=== PATIENT | female | born 1940 | race American Indian/Alaskan Native ===

== ENCOUNTER 2017-01-07 11:03 | Inpatient (IN) | payer MEDICARE ==
[2017-01-07 11:52] LABS: Basophils % (Auto) 0.7 % (0.0-1.8); Eosinophils % (Auto) 2.1 % (0.0-4.3); Hematocrit 34.7 % (30.3-42.9); Hemoglobin 11.1 gm/dl (10.1-14.3); Mean Corpuscular HGB Conc 32 % (30-34); Mean Corpuscular Volume 80 fl (79-97); Platelet Count 226 K/mm3 (140-440); Red Blood Count 4.34 M/mm3 (3.65-5.03); Red Cell Distribution Width 18.2 % (13.2-15.2); White Blood Count 5.1 K/mm3 (4.5-11.0)
[2017-01-07 11:56] LABS: Mean Corpuscular Hemoglobin 26 pg (28-32)
[2017-01-07 12:00] LABS: Anion Gap 17 mmol/L; BUN/Creatinine Ratio 14.54; Blood Urea Nitrogen 16 mg/dL (7-17); Calcium 8.8 mg/dL (8.4-10.2); Carbon Dioxide 22 mmol/L (22-30); Chloride 106.1 mmol/L (98-107); Glucose 118 mg/dL (65-100); Potassium 3.9 mmol/L (3.6-5.0); Sodium 141 mmol/L (137-145)
--- NOTE | 2017-01-07 13:35 | XRay Report ---
Chest 2 views: History: Chest pain. Findings: Cardiomegaly. Trachea is midline. Segmental consolidation right lower lobe. Normal CP angles. Impression: Segmental Consolidation right lower lobe suggestive of pneumonitis.
[2017-01-07 13:45] LABS: Alanine Aminotransferase 12 units/L (7-56); Albumin 3.7 g/dL (3.9-5); Albumin/Globulin Ratio 1.1 %; Alkaline Phosphatase 62 units/L (35-129); Bilirubin,Direct < 0.2 mg/dL (0-0.2); Lipase 48 units/L (13-60); Total Protein 7.1 g/dL (6.3-8.2)
--- NOTE | 2017-01-07 17:47 | Emergency Department Report ---
ED Chest Pain HPI - General Chief Complaint: Chest Pain Stated Complaint: CHEST PAIN Time Seen by Provider: 01/07/17 17:40 Source: patient Mode of arrival: Ambulatory Limitations: No Limitations - History of Present Illness Initial Comments: In actuality, the patient denies any chest pain pressure or tightness. She states last night she had a chest "throbbing". When asked if that was a palpitation she said yes and it went on all night. She did not feel like she was going to pass out. She did have intermittent nausea and some shortness of breath. She is not having either symptoms now. She stated that she was anxious all night and this morning she presented for evaluation at about 10 AM he tells me. She states that she has an appointment to see Dr. Mckeon on Sunday at 1:00 and that she has run out of some of her medicines for hypertension. The patient states that she has no history of myocardial infarction. She has never had a cardiac catheterization although I see an order for cardiac catheterization on the system but no cath images on the PACS. [facility] has no prior records from the patient's 2011 admission for congestive heart failure. She has not had any recent stress testing. Complaint: chest pain -: Gradual Onset: during rest Pain Location: substernal Pain Radiation: none Severity: moderate Severity scale (0 -10): 0 Quality: other (throbbing) Consistency: intermittent Improves With: nothing Worsens With: nothing re: nausea. denies: vomting, diaphoresis, dyspnea Other Symptoms: denies: cough, fever, syncope, rash, acid taste in mouth, leg swelling Treatments Prior to Arrival: none Aspirin use within the Past 7 Days: (1) Yes - Related Data Allergies Allergy/AdvReac Type Severity Reaction Status Date / Time INGRIS Inhibitors Allergy Angioedema Verified 01/07/17 18:17 CHAVO score - Chavo Score Age > 65: (1) Yes Aspirin use within the Past 7 Days: (1) Yes 3 or more CAD Risk Factors: (1) Yes 2 or more Angina events in past 24 hrs: (0) No Known CAD with more than 50% Stenosis: (0) No Elevated Cardiac Markers: (0) No ST Deviation Greater than 0.5mm: (0) No CHAVO Score: 3 ED Review of Systems ROS: Stated complaint: CHEST PAIN Other details as noted in HPI Constitutional: denies: chills, fever Eyes: denies: eye pain, eye discharge, vision change ENT: denies: ear pain, throat pain Respiratory: shortness of breath. denies: cough, wheezing Cardiovascular: as per HPI, other. denies: palpitations Endocrine: no symptoms reported Gastrointestinal: nausea. denies: abdominal pain, vomiting, diarrhea Genitourinary: denies: urgency, dysuria, discharge Musculoskeletal: denies: back pain, joint swelling, arthralgia Skin: denies: rash, lesions Neurological: denies: headache, weakness, paresthesias Psychiatric: denies: anxiety, depression Hematological/Lymphatic: denies: easy bleeding, easy bruising ED Past Medical Hx - Past Medical History Previous Medical History?: Yes Hx Hypertension: Yes Hx Congestive Heart Failure: Yes - Surgical History Past Surgical History?: No - Social History Smoking Status: Never Smoker Substance Use Type: None ED Physical Exam - General Limitations: No Limitations General appearance: alert, in no apparent distress - Head Head exam: Present: atraumatic, normocephalic - Eye Eye exam: Present: normal appearance, PERRL, EOMI. Absent: scleral icterus - ENT ENT exam: Present: mucous membranes moist - Neck Neck exam: Present: normal inspection. Absent: tenderness, meningismus - Respiratory Respiratory exam: Present: normal lung sounds bilaterally. Absent: respiratory distress - Cardiovascular Cardiovascular Exam: Present: regular rate, normal rhythm. Absent: systolic murmur, diastolic murmur, rubs, gallop - GI/Abdominal GI/Abdominal exam: Present: soft, normal bowel sounds. Absent: distended, tenderness, guarding, rebound, rigid - Extremities Exam Extremities exam: Present: other (bilateral ankle edema) - Back Exam Back exam: Present: normal inspection - Neurological Exam Neurological exam: Present: alert, oriented X3, CN II-XII intact. Absent: motor sensory deficit - Psychiatric Psychiatric exam: Present: normal affect, normal mood - Skin Skin exam: Present: warm, dry, intact, normal color. Absent: rash ED Course Vital Signs 01/07/17 01/07/17 01/07/17 11:17 11:19 16:29 Temperature 98.1 F 97.9 F Pulse Rate 60 74 Respiratory 16 18 Rate Blood Pressure 150/72 Blood Pressure 127/74 [Left] O2 Sat by Pulse 99 98 Oximetry 01/07/17 17:00 Temperature 98 F Pulse Rate 57 L Respiratory 20 Rate Blood Pressure Blood Pressure 160/84 [Left] O2 Sat by Pulse 100 Oximetry - Reevaluation(s) Reevaluation #1: Discussed case with . Patient was given aspirin, hydralazine and prophylactic Lovenox. She is pain-free. She is admitted for further evaluation and cardiology consultation. 01/07/17 18:38 01/07/17 18:[address] Alejo decide about the patient's radiographic interpretation abnormality. This is not correlating with the patient's clinical presentation certainly not as an acute pneumonia. ED Medical Decision Making - Lab Data Result diagrams: 01/07/17 11:27 01/07/17 11:27 - EKG Data -: EKG Interpreted by Me EKG shows normal: sinus rhythm Rate: normal - EKG Data When compared to previous EKG there are: previous EKG unavailable Interpretation: other (inferolateral T-wave inversions) - Radiology Data Radiology results: report reviewed interpreted by me: The patient has a chest x-ray interpretation that indicates that she has a consolidation on the right. I actually do disagree with this interpretation. I think the patient has a breast implant which is somewhat calcified or associated with this density. I do not see any consolidation on the lateral film. Critical care attestation.: If time is entered above; I have spent that time in minutes in the direct care of this critically ill patient, excluding procedure time. ED Disposition Clinical Impression: Uncontrolled hypertension, Abnormal EKG, Palpitations, Abnormal chest x-ray Disposition: OP ADMITTED IP TO THIS HOSP Is pt being admited?: Yes Does the pt Need Aspirin: Yes Condition: Stable Instructions: Hypertension (ED) Referrals: PRIMARY CARE, [Primary Care Provider] - 3-5 Days Time of Disposition: 18:42
[2017-01-07] MEDS ORDERED: LOVENOX SUB-Q SCH (18:00)
[2017-01-07] MEDS ORDERED: BABY ASPIRIN PO ONE (18:02)
[2017-01-07] MEDS ORDERED: APRESOLINE PO ONE (18:02)
[2017-01-07] MEDS ORDERED: APRESOLINE ONE (18:35)
[2017-01-07] MEDS ORDERED: LOVENOX SUB-Q ONE (18:35)
[2017-01-07] MEDS ORDERED: BABY ASPIRIN ONE (18:36)
[2017-01-07] MEDS: LOVENOX SUB-Q SCH (18:47)
[2017-01-07] MEDS ORDERED: ZANAFLEX PO PRN (22:32)
--- NOTE | 2017-01-07 22:32 | Event Note ---
Date: 01/07/17 SEE h/P IN REPORTS ACS HTN
[2017-01-07] MEDS ORDERED: SODIUM CHLORIDE FLUSH SYRINGE 10 ML IV PRN (22:34)
[2017-01-07] MEDS: COREG PO SCH (23:19)
[2017-01-08 06:38] LABS: Creatine Kinase MB 1.8 ng/mL (0.0-4.0)
[2017-01-08 06:39] LABS: Creatine Kinase 149 units/L (30-135)
[2017-01-08] MEDS ORDERED: APRESOLINE PO SCH (08:00)
[2017-01-08] MEDS ORDERED: LEXISCAN IV ONE ×2 (09:02→09:04)
--- NOTE | 2017-01-08 11:26 | Admit Criteria Form ---
Admission Criteria Documentation: CARDIOLOGY GRG Clinical Indications for Admission to Inpatient Care ( Place 'X' for any and all applicable criteria): Hospital admission is needed for appropriate care of the patient because of ANY ONE of the following (1): [ ] I. Hemodynamic instability as indicated by ALL of the following (1)(2)(3) (4)(5) [ ]a) Vital signs or other findings not as expected for chronic patient condition or baseline [ ]b) Instability indicated by ANY ONE of the following: [ ]i) Hypotension [ ]ii) Symptomatic Tachycardia unresponsive to treatment ( e.g., analgesia, fluids, sedation as indicated) [ ]iii) Inadequate perfusion indicated by ANY ONE of the following: [ ] 1) Lactic acidosis (> 2 mmol/L) [ ] 2) New abnormal capillary refill (> 3 seconds) [ ] 3) Reduced urine output [ ] 4) New altered mental status [ ]iv) Orthostatic vital sign changes unresponsive to treatment (e.g., fluids) [ ]v) IV inotropic or vasopressor medication required to maintain adequate blood pressure or perfusion [ ] II. Severe heart failure as indicated by ANY ONE of the following(17)(18) [ ]a) Respiratory distress [ ]b) Hypotension [ ]c) Anasarca (refractory to outpatient therapy) [ ]d) Cardiac arrhythmias of immediate concern [ ]e) Myocardial ischemia [ ] III. Cardiac arrhythmias or findings of immediate concern indicated by ANY ONE of the following (19)(20): [ ] a) Heart rhythms that are inherently dangerous or unstable indicated by ANY ONE of the following (21)(22)(23): [ ] i) Resuscitated ventricular fibrillation or cardiac arrest [ ] ii) Ventricular escape rhythm [ ] iii) Sustained ventricular tachycardia (30 seconds or more of ventricular rhythm at greater than 100 beats per minute) [ ] iv) Nonsustained ventricular tachycardia and ANY ONE of the following: [ ] 1) Suspected cardiac ischemia as cause or consequence of ventricular tachycardia [ ] 2) In setting of acute myocarditis [ ] b) Unstable cardiac conduction defects indicated by ANY ONE of the following(23)(24)(25) [ ] i) Type II second-degree atrioventricular block [ ]ii) Third-degree atrioventricular block [ ]iii) New-onset left bundle branch block with suspected myocardial ischemia [ ]c) Any heart rhythm and ANY ONE of the following (21)(22)(26)(27) (28) [ ] i) Continuous long-term ECG monitoring needed (e.g., initiation of drug requiring monitoring for more than 24 hours) [ ] ii) Patient has automatic implanted cardioverter defibrillator that is repeatedly firing, malfunctioning, or in need of immediate adjustment of settings beyond the scope of ambulatory or observation care [ ]d) Heart rhythms of concern due to ANY ONE of the following: [ ] i) Hypotension [ ] ii) Respiratory distress [ ] iii) Association with other significant symptoms (e.g., bradycardia with syncope or ongoing dizziness, supraventricular tachycardia with chest pain (14)(15)(17) [ ] IV. Monitoring for cardiac contusion beyond the scope of observation care needed [A](30)(31)(32) [ ] V. Surgical or device complication (e.g., valve replacement complication , pacemaker dysfunction) (35)(41)(44)(45)(46) [ ] . Inpatient palliative care needed. [B](49) Also use Inpatient Palliative Care Criteria [ ] VII. Nonbacterial thrombotic (marantic) endocarditis (36)(43)(47)(48) [X] VIII. Cardiology condition, symptom, or finding for which emergency and observation care has failed or are not considered appropriate. [ ] IX. Acute valvular disease requiring inpatient as indicated by ANY ONE of the following (41) [ ]a) Acute valvular regurgitation (42) [ ]b) Noninfectious valvulitis (43) [ ]c) Obstructive valve thrombosis [ ]d) Paravalvular leak [ ]e) Other significant valvular disorder remaining after emergency or observation level of care (as appropriate) [ ]X. Pericardial disease requiring inpatient treatment as indicated by ANY ONE of the following (33)(34)(35)(36)(37) [ ]a) Suspected tamponade (38)(39)(40) [ ]b) Hemopericardium [ ]c) Other significant pericardial disorder remaining after emergency or observation level of care (as appropriate) [ ] XI. Cardiac ischemia beyond scope of emergency and observation care. [ ] XII. Hypertension requiring inpatient treatment as indicated by ANY ONE of the following (6)(7)(8) [ ]a) SBP greater than 220 mm Hg or DBP greater than 120 mmHg despite treatment [ ]b) SBP greater than 140 mm Hg or DBP greater than 100 mm Hg with evidence of acute end organ damage as indicated by ANY ONE of the following [ ] i) Altered mental status [ ] ii) Acute renal failure as indicated by new onset of ANY ONE of the following (9)(10)(11)(12)(13) [ ]1) 3-fold rise in serum creatinine from baseline [ ]2) Serum creatinine greater than 4 mg/dL ( 354 micromoles/L) with acute rise greater than 0.5 mg/dL (44.2 micromoles/L) [ ]3) Reduction of more than 75% in estimated glomerular filtration rate from baseline [ ]4) Estimated glomerular filtration rate less than 35 mL/min/1.73m2 (0.59 mL/sec/1.73m2) in child up to 18 years of age [ ]5) Cessation of urine output indicated by ALL of the following [ ]A. Adequate volume status [ ]B. Inadequate urine output as indicated by ANY ONE of the following [ ]a. Urine output less than 0.3 mL/kg/hr for 24 hours [ ]b. Anuria (urine output less than 0.1 mL/kg/hr) for 12 hours [ ] iii) Aortic dissection [ ] iv) Myocardial Ischemia [ ] v) Left ventricular heart failure [ ]vi) Retinal Hemorrhage [ ]vii) Other significant finding [ ]c) Hypertension in child requiring inpatient treatment as indicated by ALL of the following(14)(15)(16) [ ] i) Outpatient treatment not effective, not available, or not appropriate [ ]ii) SBP or DBP greater than 95th percentile for age [ ]iii) Evidence of acute end organ damage as indicated by ANY ONE of the following [ ]1) Altered mental status [ ]2) Acute renal failure as indicated by new onset of ANY ONE of the following(9)(10)(11)(12)(13) [ ]A. 3-fold rise in serum creatinine from baseline [ ]B. Serum creatinine greater than 4 mg/dL (354 micromoles/L) with acute rise greater than 0.5 mg/dL (44.2 micromoles/L) [ ]C. Reduction of more than 75% in estimated glomerular filtration rate from baseline [ ]D. Estimated glomerular filtration rate less than 35 mL/min/1.73m2 (0.59 mL/sec/1.73m2) in child up to 18 years of age [ ]E. Cessation of urine output indicated by ALL of the following [ ]a. Adequate volume status [ ]b. Inadequate urine output as indicated by ANY ONE of the following [ ]i) Urine output less than 0.3 mL/kg/hr for 24 hours [ ]ii) Anuria ( urine output less than 0.1 mL/kg/hr) for 12 hours [ ]3) Severe headache [ ]4) Visual disturbance [ ]5) Retinal hemorrhage [ ]6) Other significant finding [ ]XIII. Complications of transplanted heart indicated by ANY ONE of the following(61): [ ]a) Acute graft rejection requiring inpatient management (eg, intravenous immunosuppression)(62)(63) [ ]b) Acute graft heart failure indicated by ANY ONE of the following(64): [ ]i) Hemodynamic instability [ ]ii) Cardiac arrhythmias of immediate concern [ ]iii) Pulmonary edema that is very severe (eg, mechanical ventilation needed, imminent or likely, need for 100% oxygen to keep oxygen saturation above 90%) [ ]iv) Pulmonary edema that is persistent as indicated by ALL of the following: [ ]1) New need for oxygen therapy to keep oxygen saturation above 90% (or increased FiO2 need from baseline) [ ]2) Has not improved sufficiently with emergency department or observation care IV diuretics or other heart failure treatments[E] [ ]v) Altered mental status that is severe or persistent [ ]vi) Increased creatinine (new on laboratory test) with reduction of more than 50% in estimated glomerular filtration rate from baseline [ ]vii) Progressively (ongoing) rising creatinine (known from past laboratory test) with reduction of more than 25% in estimated glomerular filtration rate from baseline [ ]viii) Acute renal failure [ ]ix) Acute peripheral ischemia (eg, examination shows pulseless, cool, mottled, or cyanotic extremity) [ ]x) Pulmonary artery catheter monitoring needed [ ]xi) Other sign or symptom of heart failure requiring inpatient treatment (ie, too severe or not responsive to outpatient and observation care treatment) [ ]c) Infection requiring inpatient management (eg, Hemodynamic instability, need for intravenous antimicrobial treatment)(66)(67)(68)(69)(70) [ ]d) Cardiac allograft vasculopathy requiring inpatient management ( eg evidence of cardiac ischemia)(71) [ ]e) Other complication of transplanted heart (eg, stroke, severe pulmonary hypertension, severe valvular dysfunction) requiring inpatient management(72) The original [facility] [employer] content created by [facility] has been revised. The portions of the content which have been revised are identified through the use of italic text or in bold, and [facility] has neither reviewed nor approved the modified material. All other unmodified content is copyright [facility] [employer]. Please see references footnoted in the original [facility] [employer] edition 2016 Admission Criteria Met: Yes
[2017-01-08] MEDS: LOVENOX SUB-Q SCH (11:45)
[2017-01-08] MEDS: COREG PO SCH (11:46)
--- NOTE | 2017-01-08 13:35 | History and Physical Report ---
CHIEF COMPLAINT: Left-sided pain. HISTORY OF PRESENT ILLNESS: A 76-year-old female who presents with left-sided throbbing sensation in the chest and left-sided tightness since yesterday. Intermittent nausea present. She has been anxious all night and this morning and presented for evaluation to the ER for left-sided chest tightness. Chest pain is about 7 on a scale of 1-10. No shortness of breath. No diaphoresis. ALLERGIES: INGRIS INHIBITORS. CHAVO score is 3. Age more than 65, recent aspirin use and 3 or more cardiac risk factors. PAST MEDICAL HISTORY: As mentioned, hypertension and congestive heart failure. PAST SURGICAL HISTORY: None. SOCIAL HISTORY: Does not smoke. No alcohol, no recreational drugs. FAMILY HISTORY: Hypertension present. REVIEW OF SYSTEMS: Significant for left-sided chest pain and chest tightness or palpitations. Otherwise, review of systems is essentially negative. A 14-point review of systems was done. PHYSICAL EXAMINATION: GENERAL: An elderly female, cooperative during examination. VITAL SIGNS: Blood pressure is 127/74, temperature is 98.1, pulse is 60, respirations 16. HEENT: Unremarkable. Pupils equal and reactive. NECK: Supple, no lymphadenopathy, no thyromegaly. LUNGS: Clear to auscultation and percussion. Good air entry. CARDIOVASCULAR: S1, S2 heard. No gallop, no murmur, no rub. Apical impulse in left fifth intercostal space and midclavicular line. ABDOMEN: Soft and benign. No hepatosplenomegaly. No guarding, no rigidity. Hernial orifices are normal. EXTREMITIES: Good pedal pulses. No pedal edema. CENTRAL NERVOUS SYSTEM: Alert and oriented x 4. Nonfocal exam. SKIN: Normal. LABORATORY DATA: EKG shows normal sinus rhythm, no acute ST-T wave changes. Heart rate of about 76 per minute. Chest x-ray shows maybe consolidation on the right side, but I do disagree with diagnosis. The patient has a breast implant, which is somewhat calcified or associated with density. ASSESSMENT AND PLAN: 1. Chest pain, rule out myocardial infarction. We will get serial cardiac enzymes and Lexiscan in the morning. Also, echocardiogram. 2. Hypertension. Continue carvedilol 25 mg twice a day and hydralazine 100 mg t.i.d. 3. Hyperlipidemia. Continue pravastatin 40 mg p.o. daily. 4. Deep venous thrombosis prophylaxis, Lovenox 40 mg subcutaneous daily. [facility]# [id number] KSENIA/NEPTALI
[2017-01-08 14:16] VITALS: BP 155/90
--- NOTE | 2017-01-08 14:59 | Discharge Summary ---
Providers - Providers Date of Admission: 01/07/17 17:58 Date of discharge: 01/08/17 Attending physician: JESSY ZAPATA 01/07/17 Consult to Cardiac Rehabilitation [CONS] Routine Reason For Exam: Phase I 01/07/17 22:33 Consult to Physician [CONS] Routine Consulting Provider: PENNY WANG Reason For Exam: acs Primary care physician: [facility] Hospitalization Condition: Stable Disposition: DISCHARGED TO HOME OR SELFCARE Core Measure Documentation - Palliative Care Palliative Care/ Comfort Measures: Not Applicable - Core Measures Any of the following diagnoses?: none Exam - Constitutional Vitals: Temp Pulse Resp BP Pulse Ox 98.3 F 86 20 155/90 97 01/08/17 12:00 01/08/17 12:00 01/08/17 12:00 01/08/17 12:00 01/08/17 12:00 General appearance: Present: no acute distress, well-nourished - EENT Eyes: Present: PERRL, EOM intact - Neck Neck: Present: supple, normal ROM - Respiratory Respiratory effort: normal Respiratory: bilateral: diminished, negative: rales, rhonchi, wheezing - Cardiovascular Rhythm: regular Heart Sounds: Present: S1 & S2 - Extremities Extremities: no ischemia, pulses intact, pulses symmetrical Peripheral Pulses: within normal limits - Abdominal General gastrointestinal: Present: soft, non-tender, non-distended, normal bowel sounds - Integumentary Integumentary: Present: clear, warm - Musculoskeletal Musculoskeletal: strength equal bilaterally - Psychiatric Psychiatric: appropriate mood/affect, cooperative - Neurologic Neurologic: CNII-XII intact, focal deficits Plan Activity: no restrictions Diet: other (cardiac diet) Additional Instructions: If you have recurrent chest pain, contact M.D. or go to the emergency room. Follow private tire repairman if needed. Chest pain, noncardiac, probably musculoskeletal, advised to take [id number] pain medications if needed Follow up with: PRIMARY CARE, [Primary Care Provider] - 3-5 Days
[2017-01-08] MEDS ORDERED: ZOCOR PO SCH (22:00)
--- NOTE | 2017-01-09 01:09 | Treadmill Report ---
THALLIUM STRESS TEST LEFT VENTRICLE: Left ventricular chamber size is within normal spread. Perfusion study demonstrates homogeneous uptake of the tracer in all segments, no significant perfusion defects identified. Gated analysis demonstrates normal left ventricular systolic function, ejection fraction calculated at 51%. CONCLUSION: Normal myocardial perfusion study. JOB# [id number] CA/NTS
== END 2017-01-08 16:49 | disposition home or self-care (01) | DRG 313 ==
LOC: ED 11:03 → 4A 17:58
PROVIDERS: ADMIT Internal Medicine; ATTEND Internal Medicine
DX: R07.89 Other chest pain (principal); I24.9 Acute ischemic heart disease, unspecified; R00.2 Palpitations; I11.0 Hypertensive heart disease with heart failure; I50.9 Heart failure, unspecified; E78.5 Hyperlipidemia, unspecified; Z88.8 Allergy status to other drugs, medicaments and biological substances; I25.2 Old myocardial infarction; Z82.49 Family history of ischemic heart disease and other diseases of the circulatory system
CPT/HCPCS: 36415; 71020; 78452; 80048; 80074; 82550; 82553; 83690; 83880; 84484; 85025; 93005; 93010; 93017; 93306; 99285; A9502; J1650; J2785

== ENCOUNTER 2019-10-15 02:49 | Observation (INO) | payer MEDICARE ==
--- NOTE | 2019-10-15 03:05 | Emergency Department Report ---
ED Shortness of Breath HPI - General Chief Complaint: Weakness Stated Complaint: GENERAL WEAKNESS WITH SYNCOPAL EPISODE Time Seen by Provider: 10/15/19 02:58 Source: EMS Mode of arrival: Stretcher Limitations: No Limitations - History of Present Illness Initial Comments: Mrs. Mayes is an 79-year-old female with history of atrial fibrillation, hypertension, dyslipidemia and congestive heart failure who presents with shortness of breath, weakness and syncopal episode. Mrs. Mayes was in her normal state of health until she started eating shrimp and noodles this evening. She had an episode of vomiting. Thereafter she walked to her bedroom, she fell to the floor. She was dazed unresponsive for 15 to 20 minutes. At this time she states that she feels short of breath and generally weak. She denies chest pain. January: Exercise stress test normal per myocardial perfusion study ejection fraction 51%, ejection fraction 50 to 55% according to echocardiogram PCP Dr. Rodriguez Form Grader Dr. Mike GARCIA Complaint: shortness of breath -: Sudden, This evening Severity: mild Consistency: constant Improves With: nothing Worsens With: nothing Known History Of: other (Atrial fibrillation) Associated Symptoms: other (Shortness of breath) - Related Data Home Medications Medication Instructions Recorded Confirmed Last Taken Carvedilol 25 mg PO BID 01/07/17 01/07/17 Unknown Pravastatin 40 mg PO DAILY 01/07/17 01/07/17 Unknown hydrALAZINE 100 mg PO TID 01/07/17 01/07/17 Unknown Previous Rx's Medication Instructions Recorded Last Taken Type carvediloL [Coreg] 25 mg PO BID #60 tablet 01/08/17 Unknown Rx tiZANidine 4 mg PO Q8H PRN #15 01/08/17 Unknown Rx Allergies Allergy/AdvReac Type Severity Reaction Status Date / Time INGRIS Inhibitors Allergy Angioedema Verified 01/07/17 18:17 ED Review of Systems ROS: Stated complaint: GENERAL WEAKNESS WITH SYNCOPAL EPISODE Other details as noted in HPI Comment: All other systems reviewed and negative Constitutional: malaise. denies: fever Respiratory: shortness of breath. denies: cough, wheezing Cardiovascular: denies: chest pain Gastrointestinal: vomiting ED Past Medical Hx - Past Medical History Previous Medical History?: Yes Hx Hypertension: Yes Hx Congestive Heart Failure: Yes Hx Diabetes: No Hx Asthma: No Hx COPD: No Additional medical history: AFIB - Surgical History Past Surgical History?: Yes Additional Surgical History: Right Knee replacement, Breast Implants, Hysterectomy, Right shoulder Rotator cuff, - Social History Smoking Status: Never Smoker Substance Use Type: None - Medications Home Medications: Home Medications Medication Instructions Recorded Confirmed Last Taken Type Carvedilol 25 mg PO BID 01/07/17 01/07/17 Unknown History Pravastatin 40 mg PO DAILY 01/07/17 01/07/17 Unknown History hydrALAZINE 100 mg PO TID 01/07/17 01/07/17 Unknown History carvediloL [Coreg] 25 mg PO BID #60 tablet 01/08/17 Unknown Rx tiZANidine 4 mg PO Q8H PRN #15 01/08/17 Unknown Rx ED Physical Exam - General Limitations: No Limitations General appearance: alert, in no apparent distress - Head Head exam: Present: atraumatic, normocephalic - Eye Eye exam: Present: normal appearance - ENT ENT exam: Present: mucous membranes moist - Neck Neck exam: Present: normal inspection, full ROM - Respiratory Respiratory exam: Present: normal lung sounds bilaterally. Absent: respiratory distress, wheezes, rales, rhonchi, chest wall tenderness, accessory muscle use, decreased breath sounds - Cardiovascular Cardiovascular Exam: Present: regular rate, irregular rhythm, normal heart sounds. Absent: systolic murmur, diastolic murmur, rubs, gallop - GI/Abdominal GI/Abdominal exam: Present: soft, normal bowel sounds. Absent: distended, tend erness, guarding, rebound - Extremities Exam Extremities exam: Present: pedal edema, other (2+ pitting edema from ankle to knee bilaterally) - Neurological Exam Neurological exam: Present: alert, oriented X3 - Psychiatric Psychiatric exam: Present: normal affect, normal mood - Skin Skin exam: Present: warm, dry, intact, normal color. Absent: rash ED Course Vital Signs 10/15/19 02:58 Temperature 97.6 F Pulse Rate 81 Respiratory 13 Rate Blood Pressure 102/63 [right arm] O2 Sat by Pulse 98 Oximetry ED Medical Decision Making - Lab Data Result diagrams: 10/15/19 03:27 10/15/19 03:27 - EKG Data 10/15/19 03:33 EKG obtained 0323 Atrial fibrillation ventricular rate 100 bpm left axis deviation no ST elevation nonspecific T wave pattern positive LVH, prolonged QT interval 10/15/19 03:34 - Radiology Data Radiology results: report reviewed Normal ventilation/perfusion scan according to radiology report AP portable chest 1 view mild cardiomegaly stable from prior exam according to radiology report, mild pulmonary vascular congestion - Medical Decision Making Mrs. Mayes is an 79-year-old female history of atrial fibrillation, CHF who presents with shortness of breath generalized weakness and syncope. Dif ferential diagnosis includes ventricular arrhythmia, pulmonary embolism acute coronary syndrome, rapid atrial fibrillation brief hypoxemia Acute CHF exacerbation present with pulmonary edema and bilateral lower extremity edema Admitted to the hospital service in fair condition Critical care attestation.: If time is entered above; I have spent that time in minutes in the direct care of this critically ill patient, excluding procedure time. ED Disposition Clinical Impression: Syncope, Atrial fibrillation, Acute heart failure Disposition: OP ADMIT IP TO THIS HOSP Is pt being admited?: Yes Does the pt Need Aspirin: No Condition: Stable
--- NOTE | 2019-10-15 03:22 | XRay Report ---
CHEST 1 VIEW INDICATION / CLINICAL INFORMATION: Dyspnea. COMPARISON: 01/26/2018 FINDINGS: SUPPORT DEVICES: None. HEART / MEDIASTINUM: Cardiac silhouette appears mildly enlarged. LUNGS / PLEURA: There is mild pulmonary vascular congestion. The lungs are otherwise grossly clear. N o pneumothorax. ADDITIONAL FINDINGS: No significant additional findings. IMPRESSION: 1. Mild cardiomegaly, stable from prior exam. 2. Mild pulmonary vascular congestion. Signer Name: Kadie Coelho MD Signed: 10/15/2019 3:18 AM Workstation Name: [id number]
[2019-10-15 03:54] LABS: Basophils % (Auto) 0.7 % (0.0-1.8); Eosinophils # (Auto) 0.2 K/mm3 (0.0-0.4); Eosinophils % (Auto) 3.3 % (0.0-4.3); Hematocrit 36.7 % (30.3-42.9); Hemoglobin 11.8 gm/dl (10.1-14.3); Lymphocytes % (Auto) 15.5 % (13.4-35.0); Mean Corpuscular HGB Conc 32 % (30-34); Mean Corpuscular Volume 83 fl (79-97); Monocytes # (Auto) 0.5 K/mm3 (0.0-0.8); Monocytes % (Auto) 7.6 % (0.0-7.3); Platelet Count 205 K/mm3 (140-440); Red Blood Count 4.42 M/mm3 (3.65-5.03)
[2019-10-15 04:14] LABS: Alanine Aminotransferase 8 units/L (7-56); Albumin 3.6 g/dL (3.9-5); BUN/Creatinine Ratio 19; Blood Urea Nitrogen 31 mg/dL (7-17); Calcium 8.9 mg/dL (8.4-10.2); Hemolysis Index 8
--- NOTE | 2019-10-15 04:26 | Nuclear Medicine Report ---
CLINICAL DATA: Syncope, shortness of breath TECHNICAL DATA: Inhaled administration followed by immediate static images of chest in multiple projections coordinat ed with breathing instructions. Followed by immediate static images of chest in multiple projections post- I.V. injection. ADDITIONAL TECHNICAL DATA: 10 millicuries of 133 Xenon is administered by inhalation. Pulmonary wash-in, equilibrium, and washout phases are performed. Then, 5.1 millicuries of 99m Tc MAA is administered intravenously. FINDINGS: Ventilation scan demonstrates normal wash-in equilibrium and washout without evidence of retention of Xenon. Perfusion scan demonstrates homogeneous uptake throughout both lungs without evidence of segmental or subsegmental defects. IMPRESSION: Normal ventilation/perfusion scan. Signer Name: Kadie Coelho MD Signed: 10/15/2019 4:22 AM Workstation Name: [id number]
[2019-10-15] MEDS ORDERED: FUROSEMIDE 40 MG/4 ML INJ IV ONE (04:50)
[2019-10-15] MEDS ORDERED: ACETAMINOPHEN 325 MG TAB PO PRN (05:33)
[2019-10-15] MEDS ORDERED: ONDANSETRON 4 MG/2 ML INJ IV PRN (05:33)
[2019-10-15] MEDS ORDERED: carvediloL 12.5 MG TAB PO ONE (05:34)
--- NOTE | 2019-10-15 05:35 | History and Physical Report ---
History of Present Illness History of present illness: 79-year-old woman with a history of hypertension, CHF comes emergency room with complaints of passing out. She states she was eating, having episodes of nausea vomiting, felt generalized weakness and then had a syncopal episode for about 20 seconds. She denies any chest pain, palpitations, previous history of syncope. Admits to mild shortness of breath, no PND orthopnea. Patient was given Coreg and Lasix in the emergency room, patient will be admitted for syncope evaluation Review Of Systems: Constitutional: no weight loss, fever, chills Ears, eyes, nose, mouth and throat: no nasal congestion, no nasal discharge, no sinus pressure, blurry vision, diplopia Neck: No neck pain or rigidity. Cardiovascular: No palpitations, chest pain Respiratory: No shortness of breath, cough Gastrointestinal: No hematochezia Genitourinary : no dysuria, frequency Musculoskeletal: no muscle ache , joint pain Integumentary: no rash, no pruritis Neurological: no parathesias, focal weakness Endocrine: no cold or heat intolerance, no polyuria or polydipsia Hematologic/Lymphatic: no easy bruising, no easy bleeding, no gland swelling Allergic/Immunologic: no urticaria, no angioedema. PAST MEDICAL HISTORY: hypertension, CHF PAST SURGICAL HISTORY: Right knee, breast implantation, hysterectomy, right rotator cuff SOCIAL HISTORY: Denies alcohol, tobacco, drugs FAMILY HISTORY: Hypertension Medications and Allergies Allergies Allergy/AdvReac Type Severity Reaction Status Date / Time INGRIS Inhibitors Allergy Angioedema Verified 01/07/17 18:17 Home Medications Medication Instructions Recorded Confirmed Last Taken Type Carvedilol 25 mg PO BID 01/07/17 01/07/17 Unknown History Pravastatin 40 mg PO DAILY 01/07/17 01/07/17 Unknown History hydrALAZINE 100 mg PO TID 01/07/17 01/07/17 Unknown History carvediloL [Coreg] 25 mg PO BID #60 tablet 01/08/17 Unknown Rx tiZANidine 4 mg PO Q8H PRN #15 01/08/17 Unknown Rx Active Meds: Active Medications Acetaminophen (Tylenol) 650 mg PO Q4H PRN PRN Reason: Pain MILD(1-3)/Fever >100.5/BETTS Enoxaparin Sodium (Enoxaparin) 30 mg SUB-Q QDAY [place] Ondansetron HCl (Zofran) 4 mg IV Q8H PRN PRN Reason: Nausea And Vomiting Sodium Chloride (Sodium Chloride Flush Syringe 10 Ml) 10 ml IV BID R[place]ET[place] Sodium Chloride (Sodium Chloride Flush Syringe 10 Ml) 10 ml IV PRN PRN PRN Reason: LINE FLUSH Exam - Physical Exam Narrative exam: Gen. appearance: Patient lying in bed, no apparent distress HEENT: Normocephalic, atraumatic, pupils equally round and reactive to light, extraocular movement intact, and no sclericterus,. No JVD or thyromegaly or nodule,neck supple, no carotid bruit ,mucous membranes moist, no exudate or erythema Heart: S1, S2, regular rate and rhythm Lungs: Mild crackles bilaterally, breathing comfortable Abdomen: Positive bowel sounds, nontender, nondistended, no organomegaly Extremity: no edema, cyanosis, clubbing Skin: No rash, nodules, warm, dry Neuro: speech is fluent, moves extremities, sensory intact - Constitutional Vitals: Temp Pulse Resp BP Pulse Ox 97.6 F 81 13 102/63 98 10/15/19 02:58 10/15/19 02:58 10/15/19 02:58 10/15/19 02:58 10/15/19 02:58 Results - Labs CBC & Chem 7: 10/15/19 03:27 10/15/19 03:27 Labs: Abnormal lab results 10/15/19 10/15/19 10/15/19 Range/Units 03:27 03:27 03:27 MCH 27 L (28-32) pg RDW 17.0 H (13.2-15.2) % [place] % (Auto) 7.6 H (0.0-7.3) % Lymph # 1.0 L (1.2-5.4) K/mm3 Seg Neutrophils % 72.9 H (40.0-70.0) % D-Dimer 319.95 H (0-234) ng/mlDDU Chloride 109.2 H (98-107) mmol/L Carbon Dioxide 19 L (22-30) mmol/L BUN 31 H (7-17) mg/dL Creatinine 1.6 H (0.7-1.2) mg/dL Glucose 117 H (65-100) mg/dL Albumin 3.6 L (3.9-5) g/dL Digoxin (0.9-2.0) ng/mL 10/15/19 Range/Units 03:27 MCH (28-32) pg RDW (13.2-15.2) % [place] % (Auto) (0.0-7.3) % Lymph # (1.2-5.4) K/mm3 Seg Neutrophils % (40.0-70.0) % D-Dimer (0-234) ng/mlDDU Chloride (98-107) mmol/L Carbon Dioxide (22-30) mmol/L BUN (7-17) mg/dL Creatinine (0.7-1.2) mg/dL Glucose (65-100) mg/dL Albumin (3.9-5) g/dL Digoxin 0.3 L (0.9-2.0) ng/mL - Imaging and Cardiology EKG: image reviewed Chest x-ray: report reviewed Assessment and Plan VQ scan low probability Assessment Syncope Check cardiac enzymes, echo, carotid Doppler Check orthostatics, consult cardiology A. fib Continue aspirin, cardiac medications History of hypertension, now with relative hypotension Hold all antihypertensives, diuretic Monitor blood pressure CHF, stable DVT prophylaxis
--- NOTE | 2019-10-15 09:48 | Vascular Lab Report ---
BILATERAL CAROTID DOPPLER ULTRASOUND INDICATION : syncope TECHNIQUE: Grayscale and color Doppler imaging performed through the neck. COMPARISON: None FINDINGS: Right: There is no significant atherosclerotic disease. Peak systolic velocity in the CCA is 71 cm/ s with end-diastolic velocity of 17 cm/s. Peak systolic velocity in the proximal ICA is 97 cm/s with end-diastolic velocity of 27 cm/s. ICA to CCA ratio is less than 2. There is antegrade flow in the E CA and the vertebral artery. Left: There is no significant atherosclerotic disease. Peak systolic velocity in the CCA is 70 cm/s w ith end-diastolic velocity of 13 cm/s. Peak systolic velocity in the proximal ICA is 88 cm/s with end -diastolic velocity of 28 cm/s. ICA to CCA ratio is less than 2. There is antegrade flow in the ECA and the vertebral artery. IMPRESSION: No hemodynamically significant stenosis by NASCET criteria. Doppler velocities indicate l ess than 50% luminal narrowing bilaterally. Signer Name: Patric Tompkins Jr, MD Signed: 10/15/2019 9:43 AM Workstation Name: [id number]
[2019-10-15] MEDS ORDERED: ENOXAPARIN 30 MG/0.3 ML INJ SUB-Q SCH (10:00)
--- NOTE | 2019-10-15 12:27 | Consultation ---
History of Present Illness Consult date: 10/15/19 Consult reason: syncope History of present illness: This is an 79-year old woman with a history of non-ischemic cardiomyopathy by cardiac cath in 2011 that reports no significant coronary artery disease. Ejection fraction 10%. Serial echocardiogram documents a resolving cardiomyoapthy, ejection fraction improved to 50-55% by echocardiogram in 2017. Co-morbidites includes hypertension and chronic renal failure. Patient was brought to this hospital and admitted with syncope. Her presenting ECG is atrial fibrillation, with a well controlled ventricular rate. Patient does not have a history of atrial fibrillation. Findings are new onset. Patient denies chest pain, unusual shortness of breath and palpitations. She reports diaphoresis, dizziness and feeling weak just prior to passing out. Patient has since reverted to a sinus rhythm. A follow up EKG is sinus rhythm with nonspecific [place] abnormalities. V\Q scan reports a low probability for PE. Further evaluation with a repeat echocardiogram reports a decreased left ventricular systolic function, EF 35-40%. Medications and Allergies Allergies Allergy/AdvReac Type Severity Reaction Status Date / Time INGRIS Inhibitors Allergy Angioedema Verified 01/07/17 18:17 Home Medications Medication Instructions Recorded Confirmed Last Taken Type hydrALAZINE 100 mg PO TID 01/07/17 10/15/19 Unknown History Active Meds: Active Medications Acetaminophen (Tylenol) 650 mg PO Q4H PRN PRN Reason: Pain MILD(1-3)/Fever >100.5/BETTS Enoxaparin Sodium (Enoxaparin) 30 mg SUB-Q QDAY [facility] Last Admin: 10/15/19 11:35 Dose: 30 mg Documented by: Ondansetron HCl (Zofran) 4 mg IV Q8H PRN PRN Reason: Nausea And Vomiting Pneumococcal Polyvalent Vaccine (Pneumovax 23) 0.5 ml IM .ONCE ONE Stop: 10/16/19 12:01 Sodium Chloride (Sodium Chloride Flush Syringe 10 Ml) 10 ml IV BID [facility] Last Admin: 10/15/19 11:35 Dose: 10 ml Documented by: Sodium Chloride (Sodium Chloride Flush Syringe 10 Ml) 10 ml IV PRN PRN PRN Reason: LINE FLUSH Physical Examination Vital Signs Pulse Ox 98 10/15/19 02:56 General appearance: no acute distress HEENT: Positive: PERRL Neck: Positive: trachea midline Cardiac: Positive: Reg Rate and Rhythm Lungs: Positive: Decreased Breath Sounds Neuro: Positive: Grossly Intact Extremities: Absent: edema Results 10/15/19 03:27 10/15/19 03:27 Cardiac Enzymes 10/15/19 10/15/19 Range/Units 03:27 05:53 AST 14 (5-40) units/L CK-MB (CK-2) 2.0 (0.0-4.0) ng/mL CBC 10/15/19 Range/Units 03:27 WBC 6.2 (4.5-11.0) K/mm3 RBC 4.42 (3.65-5.03) M/mm3 Hgb 11.8 (10.1-14.3) gm/dl Hct 36.7 (30.3-42.9) % Plt Count 205 (140-440) K/mm3 Lymph # 1.0 L (1.2-5.4) K/mm3 [place] # 0.5 (0.0-0.8) K/mm3 Eos # 0.2 (0.0-0.4) K/mm3 Baso # 0.0 (0.0-0.1) K/mm3 Comprehensive Metabolic Panel 10/15/19 Range/Units 03:27 Sodium 142 (137-145) mmol/L Potassium 4.0 (3.6-5.0) mmol/L Chloride 109.2 H (98-107) mmol/L Carbon Dioxide 19 L (22-30) mmol/L BUN 31 H (7-17) mg/dL Creatinine 1.6 H (0.7-1.2) mg/dL Glucose 117 H (65-100) mg/dL Calcium 8.9 (8.4-10.2) mg/dL AST 14 (5-40) units/L ALT 8 (7-56) units/L Alkaline Phosphatase 67 (35-129) units/L Total Protein 6.3 (6.3-8.2) g/dL Albumin 3.6 L (3.9-5) g/dL Assessment and Plan New onset Afib spontaneously reverted to sinus rhythm Syncope VQ scan reports low probability for PE Hx of nonischemic CMP INGRIS allergy LVEF 35-40% by echo this admission Chronic kidney disease Hypertension
[2019-10-15 14:28] LABS: Creatine Kinase MB 2.2 ng/mL (0.0-4.0)
[2019-10-15 15:15] LABS: Chol/HDL Ratio 2.51 %
[2019-10-15] MEDS: hydrALAZINE 25 MG TAB PO SCH ×2 (15:40→22:01)
--- NOTE | 2019-10-15 16:17 | Event Note ---
Date: 10/15/19 Patient presents with syncope, elevated Creatinine. I have seen and examined her.
[2019-10-15] MEDS: APIXABAN 5 MG TAB PO SCH (21:59)
[2019-10-15] MEDS: carvediloL 12.5 MG TAB PO SCH (22:00)
[2019-10-15] MEDS ORDERED: ENOXAPARIN 80 MG/0.8 ML INJ SUB-Q SCH (22:00)
[2019-10-16 06:48] LABS: Basophils % (Auto) 0.7 % (0.0-1.8); Eosinophils # (Auto) 0.2 K/mm3 (0.0-0.4); Eosinophils % (Auto) 4.4 % (0.0-4.3); Hematocrit 33.9 % (30.3-42.9); Hemoglobin 10.8 gm/dl (10.1-14.3); Lymphocytes # (Auto) 1.6 K/mm3 (1.2-5.4); Lymphocytes % (Auto) 33.7 % (13.4-35.0); Mean Corpuscular HGB Conc 32 % (30-34); Mean Corpuscular Volume 84 fl (79-97); Monocytes # (Auto) 0.5 K/mm3 (0.0-0.8); Monocytes % (Auto) 10.5 % (0.0-7.3); Platelet Count 199 K/mm3 (140-440); Red Blood Count 4.05 M/mm3 (3.65-5.03); Red Cell Distribution Width 17.3 % (13.2-15.2)
[2019-10-16 07:01] LABS: Calcium 8.6 mg/dL (8.4-10.2)
[2019-10-16] MEDS: hydrALAZINE 25 MG TAB PO SCH (07:46)
--- NOTE | 2019-10-16 11:13 | Progress Note ---
Assessment and Plan New onset Afib spontaneously reverted to sinus rhythm initiated on eliquis; on coreg for suppression Syncope, likely vasovagal VQ scan reports low probability for PE Hx of nonischemic CMP INGRIS allergy LVEF 35-40% by echo this admission [facility] 2011: no significant CAD Chronic kidney disease Hypertension Continue medical therapy for non-ischemic cardiomyopathy and paroxysmal atrial fibrillation. Cardiac status is stable. Subjective Date of service: 10/16/19 Interval history: Patient is has no complaints. Wants to go home. Stable sinus rhythm on telemetry. Objective Vital Signs Temp Pulse Resp Resp BP Pulse Ox 10/16/19 10:00 76 10/16/19 07:40 97.8 F 69 16 154/67 99 10/16/19 05:01 98.3 F 81 18 197/105 97 10/16/19 04:58 98.3 F 74 18 159/83 99 10/16/19 00:35 98.2 F 76 18 120/55 96 10/15/19 23:00 20 10/15/19 22:01 73 121/60 10/15/19 22:00 76 121/60 10/15/19 19:31 98.0 F 75 18 118/51 95 10/15/19 16:21 98.1 F 73 18 121/60 96 10/15/19 15:50 151/82 90 10/15/19 15:40 76 18 151/82 93 10/15/19 15:30 86 11 L 151/82 94 10/15/19 15:20 85 16 151/82 94 10/15/19 15:10 87 18 151/82 96 10/15/19 15:00 87 15 151/82 97 10/15/19 14:50 84 18 151/82 96 10/15/19 14:40 82 20 151/82 97 10/15/19 14:30 81 19 146/99 98 10/15/19 14:20 77 19 146/99 98 10/15/19 14:14 146/99 96 10/15/19 14:08 146/99 81 L 10/15/19 13:40 18 146/99 10/15/19 13:30 19 146/99 10/15/19 13:22 92 H 16 146/99 10/15/19 13:10 85 24 146/99 98 10/15/19 13:00 75 20 151/72 98 10/15/19 12:50 74 21 151/72 10/15/19 12:40 66 22 151 - Physical Examination General: No Apparent Distress HEENT: Positive: PERRL Neck: Positive: trachea midline Cardiac: Positive: Reg Rate and Rhythm Lungs: Positive: Normal Breath Sounds Neuro: Positive: Grossly Intact Extremities: Absent: edema - Labs and Meds Cardiac Enzymes 10/15/19 Range/Units 13:38 CK-MB (CK-2) 2.2 (0.0-4.0) ng/mL Lipids 10/15/19 Range/Units 13:38 Triglycerides 69 (2-149) mg/dL Cholesterol 141 (50-199) mg/dL HDL Cholesterol 56 (40-59) mg/dL Cholesterol/HDL Ratio 2.51 % CBC 10/16/19 Range/Units 06:03 WBC 4.9 (4.5-11.0) K/mm3 RBC 4.05 (3.65-5.03) M/mm3 Hgb 10.8 (10.1-14.3) gm/dl Hct 33.9 (30.3-42.9) % Plt Count 199 (140-440) K/mm3 Lymph # 1.6 (1.2-5.4) K/mm3 [place] # 0.5 (0.0-0.8) K/mm3 Eos # 0.2 (0.0-0.4) K/mm3 Baso # 0.0 (0.0-0.1) K/mm3 Comprehensive Metabolic Panel 10/16/19 Range/Units 06:03 Sodium 142 (137-145) mmol/L Potassium 3.7 (3.6-5.0) mmol/L Chloride 108.1 H (98-107) mmol/L Carbon Dioxide 20 L (22-30) mmol/L BUN 33 H (7-17) mg/dL Creatinine 1.6 H (0.7-1.2) mg/dL Glucose 111 H (65-100) mg/dL Calcium 8.6 (8.4-10.2) mg/dL
[2019-10-16] MEDS: carvediloL 12.5 MG TAB PO SCH (11:44)
[2019-10-16] MEDS: APIXABAN 5 MG TAB PO SCH (11:45)
[2019-10-16] MEDS ORDERED: FLU VACC QUAD 2019-20 (3 YR UP)/PF 60 MCG/0.5 ML SYRINGE IM ONE (12:00)
[2019-10-16] MEDS ORDERED: PNEUMOCOCCAL 23 Valent 0.5 ML VIAL IM ONE (12:00)
[2019-10-16] MEDS: hydrALAZINE 100 MG TAB PO SCH ×2 (12:28→15:50)
--- NOTE | 2019-10-16 13:45 | Discharge Summary ---
Providers - Providers Date of Admission: 10/15/19 05:33 Date of discharge: 10/16/19 Attending physician: HIEN RICHARDS 10/15/19 05:33 Consult to Physician [CONS] Routine Comment: Consulting Provider: SAUNDRA BEARD Physician Instructions: Reason For Exam: syncope Primary care physician: LITIGATION PARALEGAL Hospitalization Condition: Stable Exam - Constitutional Vitals: Temp Pulse Resp BP Pulse Ox 98.1 F 87 19 140/78 96 10/16/19 10:54 10/16/19 11:44 10/16/19 10:54 10/16/19 11:44 10/16/19 10:54 Plan Activity: advance as tolerated Diet: low fat, low cholesterol, low salt Plan of Treatment: 1.Follow up with PCP in 1 week. 2.Follow up with Dr. Beard, Cardiology in [address] Beard to arrange 30 day event monitor Follow up with: PRIMARY CARE, [Primary Care Provider] - 7 Days Prescriptions: carvediloL [Coreg] 12.5 mg PO BID #60 tablet Apixaban [Eliquis] 5 mg PO Q12HR #60 tablet
[2019-10-16 15:52] VITALS: BP 141/63
== END 2019-10-16 16:30 | disposition home or self-care (01) ==
LOC: SUATTDRO 02:49 → ED 02:49 → 4A 05:33
PROVIDERS: ADMIT Internal Medicine; ATTEND Internal Medicine
DX: R55 Syncope and collapse (principal); I48.91 Unspecified atrial fibrillation; I11.0 Hypertensive heart disease with heart failure; I50.9 Heart failure, unspecified; R11.2 Nausea with vomiting, unspecified; Z90.710 Acquired absence of both cervix and uterus; Z96.651 Presence of right artificial knee joint; Z23 Encounter for immunization
CPT/HCPCS: 36415; 71045; 78582; 80048; 80053; 80061; 80162; 82550; 82553; 83880; 84484; 85025; 85379; 90686; 90732; 93005; 93010; 93306; 93880; 96372; 96374; 99285; A9540; A9558; G0009; G0378; J1650; J1940; 90471

== ENCOUNTER 2020-03-16 16:42 | Emergency (ER) | payer MEDICARE ==
--- NOTE | 2020-03-16 17:04 | Event Note ---
ED Screening Note ED Screening Note: 80-year-old female sent to the ER by her primary care physician due to hypotension This initial assessment/diagnostic orders/clinical plan/treatment(s) is/are subject to change based on patients health status, clinical progression and re- assessment by fellow clinical providers in the ED. Further treatment and workup at subsequent clinical providers discretion. Patient/guardian urged not to elope from the ED as their condition may be serious if not clinically assessed and managed. Initial orders include: Labs urine and chest x-ray. EKG. To main ER for evaluation
--- NOTE | 2020-03-16 17:46 | XRay Report ---
CHEST 2 VIEWS INDICATION: Chest Pain. COMPARISON: 10/15/2019 FINDINGS: Support devices: None. Heart: Borderline to mild cardiomegaly. Lungs/pleura: No acute air space or interstitial disease. No pneumothorax. Additional findings: None. IMPRESSION: Borderline heart size. Lungs clear. Signer Name: Patric Tompkins Jr, MD Signed: 03/16/2020 5:41 PM Workstation Name: [id number]
--- NOTE | 2020-03-16 20:33 | Emergency Department Report ---
HPI - General Chief Complaint: Recheck/Abnormal Lab/Rx Time Seen by Provider: 03/16/20 17:03 - [facility] HPI: This is an 80-year-old female presents to the emergency department, sent in by her PCP Dr. Rodriguez, secondary to some low blood pressure. It was found to be 80/60 in the office. Her blood pressure has been normal since arrival to the emergency department and she did not receive any medication or treatment prior to arrival today. The patient had some type of a fall or weakness about 2 weeks ago, and was complaining of joint pain "everywhere", which is what brought her to see Dr. Rodriguez about 1 week ago. He placed her on baclofen and gabapentin. She was following up today when she was found to have a low blood pressure. At the time of my examination the patient is asymptomatic, or at least has no complaints. The previous joint pain is currently not bothering her. She denies any fever, headache, chest pain, shortness of breath, vision change, slurred speech. She has a past medical history that includes CHF, hypertension, atrial fibrillation on anticoagulation. Patient is currently on 3 different antihypertensive medications and the patient says that the PCP told her to stop the hydralazine today. ED Past Medical Hx - Past Medical History Previous Medical History?: Yes Hx Hypertension: Yes Hx Congestive Heart Failure: Yes Hx Diabetes: No Hx Asthma: No Hx COPD: No Additional medical history: AFIB - Surgical History Past Surgical History?: Yes Additional Surgical History: Right Knee replacement, Breast Implants, Hysterectomy, Right shoulder Rotator cuff, - Social History Smoking Status: Never Smoker Substance Use Type: Alcohol - Medications Home Medications: Home Medications Medication Instructions Recorded Confirmed Last Taken Type hydrALAZINE 100 mg PO TID 01/07/17 10/15/19 Unknown History Apixaban [Eliquis] 5 mg PO Q12HR #60 tablet 10/16/19 Unknown Rx carvediloL [Coreg] 12.5 mg PO BID #60 tablet 10/16/19 Unknown Rx ED Review of Systems ROS: Stated complaint: BP LOW Other details as noted in HPI Comment: All other systems reviewed and negative Constitutional: denies: chills, fever Eyes: denies: eye pain, vision change ENT: denies: ear pain, throat pain Respiratory: denies: cough, shortness of breath Cardiovascular: denies: chest pain, palpitations Gastrointestinal: denies: abdominal pain, vomiting Genitourinary: denies: dysuria, discharge Musculoskeletal: denies: back pain, joint swelling Skin: denies: rash, lesions Neurological: denies: headache, weakness Physical Exam - Physical Exam Vital Signs: Vital Signs 03/16/20 03/16/20 16:59 17:01 Temperature 97.4 F L Pulse Rate 71 Respiratory 16 Rate Blood Pressure 109/51 103/51 O2 Sat by Pulse 97 Oximetry Physical Exam: GENERAL: The patient is well-developed well-nourished. HENT: Normocephalic. Atraumatic. Patient has moist mucous membranes. EYES: Extraocular motions are intact. NECK: Supple. Trachea is midline. CHEST/LUNGS: Clear to auscultation. There is no respiratory distress noted. HEART/CARDIOVASCULAR: Regular. There is no tachycardia. ABDOMEN: Abdomen is soft, nontender. Patient has normal bowel sounds. SKIN: Skin is warm and dry. NEURO: The patient is awake, alert, and oriented. The patient is cooperative. Cranial nerves II through XII grossly intact. Normal speech. MUSCULOSKELETAL: There is no tenderness or deformity. There is no evidence of acute injury. ED Course Vital Signs 03/16/20 03/16/20 16:59 17:01 Temperature 97.4 F L Pulse Rate 71 Respiratory 16 Rate Blood Pressure 109/51 103/51 O2 Sat by Pulse 97 Oximetry ED Medical Decision Making - Lab Data Result diagrams: 03/16/20 20:30 03/16/20 20:30 - EKG Data -: EKG Interpreted by Me EKG shows normal: sinus rhythm, axis (Left axis deviation), intervals (Slight prolongation of QTC), QRS complexes (LVH), ST-T waves (T wave versions to the inferior leads) Rate: normal - EKG Data When compared to previous EKG there are: no significant change Interpretation: unchanged when compared t (10/15/19 except previous EKG was atrial fibrillation and currently she is sinus rhythm) - Radiology Data Radiology results: image reviewed interpreted by me: Chest x-ray does not show any acute process. There are no pleural effusions, obvious pneumonia and there is no pneumothorax. - Medical Decision Making This patient was sent in from her PCPs office after finding some hypotension with a blood pressure of 80/60. Since being in the emergency department the patient's blood pressure has never gone down below a systolic of 100 and was at 140 at time of discharge. Patient has no complaints at this time. EKG did not have any morphology consistent with ST elevation myocardial infarction. Her labs are mostly unremarkable including CBC, metabolic panel, and TSH level, except for some chronic kidney disease consistent with previous visits. Patient was reevaluated multiple times over more than 5 hours and has not had any further hypotension and remains asymptomatic. For these reasons the patient will be discharged home to follow-up with her primary care physician. She was already given instructions by her PCP to discontinue the hydralazine. She will return to the emergency department with any worsening of her symptoms or with any acute distress. Critical Care Time: No Critical care attestation.: If time is entered above; I have spent that time in minutes in the direct care of this critically ill patient, excluding procedure time. ED Disposition Clinical Impression: Transient hypotension CKD (chronic kidney disease) Qualifiers: Chronic kidney disease stage: unspecified stage Qualified Code(s): N18.9 - Chronic kidney disease, unspecified Disposition: TO HOME OR SELFCARE Is pt being admited?: No Condition: Stable Instructions: Hypotension (ED) Additional Instructions: You were sent in today after having some hypotension, low blood pressure, at your primary care physician's office. There has not been any hypotension since he has been in the emergency department. Your blood work this evening has been normal other than signs of chronic kidney disease that is unchanged from previous visits here. Please follow-up with your primary care physician in the next few days regarding your blood pressure medications, the gabapentin and baclofen, and for general follow-up. Please return to the emergency department immediately with any chest pain or shortness of breath, weakness, fever, or with any acute distress. Referrals: DANA RODRIGUEZ MD [Referring] - 2-3 Days Time of Disposition: 21:30
[2020-03-16 21:06] LABS: Alanine Aminotransferase 6 units/L (7-56); Albumin 3.8 g/dL (3.9-5); BUN/Creatinine Ratio 23; Blood Urea Nitrogen 36 mg/dL (7-17); Calcium 9.6 mg/dL (8.4-10.2); Hemolysis Index 10
[2020-03-16 21:13] LABS: Eosinophils # (Auto) 0.2 K/mm3 (0.0-0.4); Eosinophils % (Auto) 3.8 % (0.0-4.3); Hematocrit 33.7 % (30.3-42.9); Hemoglobin 10.7 gm/dl (10.1-14.3); Lymphocytes # (Auto) 1.2 K/mm3 (1.2-5.4); Lymphocytes % (Auto) 24.2 % (13.4-35.0); Mean Corpuscular HGB Conc 32 % (30-34); Mean Corpuscular Volume 83 fl (79-97); Monocytes # (Auto) 0.4 K/mm3 (0.0-0.8); Monocytes % (Auto) 9.1 % (0.0-7.3); Platelet Count 250 K/mm3 (140-440); Red Blood Count 4.09 M/mm3 (3.65-5.03); Red Cell Distribution Width 17.2 % (13.2-15.2)
[2020-03-16 21:59] VITALS: BP 140/76
== END 2020-03-16 22:00 | disposition home or self-care (01) ==
LOC: ED 16:42
DX: I95.89 Other hypotension (principal); I13.0 Hypertensive heart and chronic kidney disease with heart failure and stage 1 through stage 4 chronic kidney disease, or unspecified chronic kidney disease; N18.9 Chronic kidney disease, unspecified; I50.9 Heart failure, unspecified; Z79.899 Other long term (current) drug therapy; Z98.890 Other specified postprocedural states; Z88.8 Allergy status to other drugs, medicaments and biological substances
CPT/HCPCS: 36415; 71046; 80053; 84443; 84484; 85025; 93005; 99283